=== PATIENT | female | born 1970 | race Caucasian/White ===

== ENCOUNTER 2020-07-08 16:18 | Emergency (ER) | payer SELFPAY ==
[~2020-07-08] VITALS: Ht 167.6 cm; Wt 70.0 kg
[2020-07-08 17:40] VITALS: BP 113/67
== END 2020-07-08 17:50 | disposition home or self-care (01) | DRG 556 ==
LOC: ED 16:18
PROC: 2W3TX1Z Immobilization of Left Foot using Splint (ICD-10-PCS; principal; 2020-07-08)
DX: M79.672 Pain in left foot (principal); W22.09XA Striking against other stationary object, initial encounter; Y93.I9 Activity, other involving external motion; Y92.828 Other wilderness area as the place of occurrence of the external cause

== ENCOUNTER 2020-07-15 14:05 | Emergency (ER) | payer SELFPAY ==
[~2020-07-15] VITALS: Ht 167.6 cm; Wt 75.0 kg
[2020-07-15 16:25] VITALS: BP 122/76
[2020-07-15] MEDS ORDERED: HYDROCO/APAP1 TA9 PO (18:17)
[2020-07-15] MEDS ORDERED: ONDANSETRON4 MG PO (18:17)
== END 2020-07-15 18:24 | disposition home or self-care (01) | DRG 563 ==
LOC: ED 14:05
PROC: 2W3TX1Z Immobilization of Left Foot using Splint (ICD-10-PCS; principal; 2020-07-15)
DX: S92.002A Unspecified fracture of left calcaneus, initial encounter for closed fracture (principal); W16.822A Jumping or diving into other water striking bottom causing other injury, initial encounter; Y93.9 Activity, unspecified; Y92.828 Other wilderness area as the place of occurrence of the external cause